=== PATIENT | female | born 1990 | race Caucasian/White ===

== ENCOUNTER 2023-11-05 13:48 | Emergency (ER) | payer SELFPAY ==
[2023-11-05 14:08] VITALS: BP 127/75; PULSE 72; RESP 15; TEMP 98.1; BMI 23.3
== END 2023-11-05 16:07 | disposition home or self-care (01) ==
LOC: FER 13:48
DX: R25.3 Fasciculation (principal)
CPT/HCPCS: 93971-TC; 99284-25